=== PATIENT | female | born 1955 | race Caucasian/White ===

== ENCOUNTER 2025-03-12 15:47 | Inpatient (IN) | payer MEDICARE, BC ==
[~2025-03-12] VITALS: Ht 157.5 cm; Wt 90.7 kg
[2025-03-12 15:50] VITALS: BP 164/87
[2025-03-12] MEDS: IV NORMAL SALINE 500 ML BAG IV ONE (16:00)
[2025-03-12] MEDS ORDERED: FLUT1BLS12 IH (16:08)
[2025-03-12] MEDS ORDERED: ASPI81TA31 PO (16:08)
[2025-03-12] MEDS ORDERED: LEVO150T8 PO (16:08)
[2025-03-12] MEDS ORDERED: OMEG100037 PO (16:08)
[2025-03-12] MEDS ORDERED: CHOL200010 PO (16:08)
[2025-03-12] MEDS ORDERED: SPIR25TA6 PO (16:08)
[2025-03-12] MEDS ORDERED: OMEP40CA21 PO (16:08)
[2025-03-12] MEDS ORDERED: SEMA14TA PO (16:08)
[2025-03-12] MEDS ORDERED: METF-440 PO (16:08)
[2025-03-12] MEDS ORDERED: MINO2.5T PO (16:08)
[2025-03-12] MEDS ORDERED: ATOR20TA PO (16:08)
[2025-03-12] MEDS ORDERED: LOSA50TA39 PO (16:08)
[2025-03-12] MEDS ORDERED: CETI-90 PO (16:08)
[2025-03-12 16:20] VITALS: O2SAT 96
[2025-03-12] MEDS ORDERED: ALBUTEROL SULFATE 2.5 MG/3 ML NEBU ONE (16:20)
[2025-03-12] MEDS ORDERED: IPRATROPIUM BROMIDE 0.5 MG/2.5 ML NEBU ONE (16:20)
[2025-03-12 16:31] LABS: ASPARTATE AMINOTRANSFERASE 33.0 U/L (15-37); CREATININE 0.9 mg/dL (0.6-1.3); PLATELET COUNT (AUTO) 284 K/uL (179-408); RED BLOOD CELL COUNT(AUTO) 5.49 MIL/uL (3.63-4.92); RED CELL DISTRIBUTION WIDTH 17.1 % (12.3-17.7); SODIUM SERUM 136.0 mmol/L (136-145); TOTAL PROTEIN, SERUM 7.7 g/dL (6.4-8.2); UREA NITROGEN, BLOOD 14.0 mg/dL (7-18); WHITE BLOOD COUNT (AUTO) 15.8 K/uL (3.8-11.8)
[2025-03-12] MEDS: ALBUTEROL SULFATE 2.5 MG/3 ML NEBU NEB ONE (16:31)
[2025-03-12] MEDS: IPRATROPIUM BROMIDE 0.5 MG/2.5 ML NEBU NEB ONE (16:31)
[2025-03-12 16:35] VITALS: O2SAT 99
[2025-03-12] MEDS: CEFTRIAXONE 500 MG VIAL IV ONE (16:52)
[2025-03-12] MEDS ORDERED: CEFTRIAXONE /D5W 50ML IVPB **ER PYXIS IV ONE (16:52)
[2025-03-12] MEDS ORDERED: ONDANSETRON 4 MG/2 ML VIAL IV PRN (17:15)
[2025-03-12] MEDS ORDERED: REMEDY ESSENTIAL ZINC PASTE 113 GM TP PRN (17:15)
[2025-03-12] MEDS ORDERED: DEXTROSE 50% 50 ML DISP.SYRIN IV PRN (17:15)
[2025-03-12] MEDS ORDERED: MAGNESIUM HYDROXIDE 30 ML LIQUID UDC PO PRN (17:15)
[2025-03-12 19:00] VITALS: BP 126/73; TEMP 97.7; O2SAT 93
[2025-03-12] MEDS: IPRATROPIUM BROMIDE 0.5 MG/2.5 ML NEBU NEB SCH (19:30)
[2025-03-12] MEDS: ALBUTEROL SULFATE 2.5 MG/3 ML NEBU NEB SCH (19:30)
[2025-03-12] MEDS: MAGNESIUM SULFATE/D5W 100 ML IV SCH (20:25)
[2025-03-12] MEDS: ATORVASTATIN 20 MG TABLET PO SCH (21:00)
[2025-03-12] MEDS: MOMETASONE/FORMOTEROL 8.8 GM HFA.AER.AD IH SCH (21:00)
[2025-03-12] MEDS: DOXYCYCLINE HYCLATE IV 100 MG in IV DEXTROSE 5% 100 ML IV SCH (21:47)
[2025-03-12] MEDS: BLOOD SUGAR DIAGNOSTIC 1 EACH STRIP VI SCH (21:53)
[2025-03-12] MEDS: ENOXAPARIN SODIUM 40 MG/0.4 ML DISP.SYRIN SQ SCH (21:53)
[2025-03-12] MEDS: INSULIN REGULAR, HUMAN 300 UNITS/3 ML VIAL SQ PRN (22:00)
[2025-03-12] MEDS: ACETAMINOPHEN 325 MG TABLET PO PRN (23:21)
[2025-03-13] VITALS (12 sets, daily range): BP systolic 95–142; BP diastolic 44–71; TEMP 97.6–98.9; O2SAT 93–99
[2025-03-13] MEDS: LEVOTHYROXINE SODIUM 150 MCG TABLET PO SCH (06:17)
[2025-03-13 06:22] LABS: PLATELET COUNT (AUTO) 313 K/uL (179-408); RED BLOOD CELL COUNT(AUTO) 4.92 MIL/uL (3.63-4.92); RED CELL DISTRIBUTION WIDTH 17.7 % (12.3-17.7); WHITE BLOOD COUNT (AUTO) 16.0 K/uL (3.8-11.8)
[2025-03-13 06:45] LABS: CREATININE 0.8 mg/dL (0.6-1.3); SODIUM SERUM 140.0 mmol/L (136-145); UREA NITROGEN, BLOOD 15.0 mg/dL (7-18)
[2025-03-13] MEDS: PANTOPRAZOLE SODIUM 40 MG VIAL IV SCH (08:30)
[2025-03-13] MEDS: ASPIRIN 81 MG TAB.CHEW PO SCH (08:30)
[2025-03-13] MEDS: SPIRONOLACTONE 25 MG TABLET PO SCH (08:30)
[2025-03-13] MEDS: OMEGA-3 FATTY ACIDS/FISH OIL CAPSULE PO SCH (08:31)
[2025-03-13] MEDS: CHOLECALCIFEROL 1,000 UNIT TABLET PO SCH (08:31)
[2025-03-13] MEDS: MINOXIDIL 2.5 MG TABLET PO SCH (08:31)
[2025-03-13] MEDS: LOSARTAN POTASSIUM 50 MG TABLET PO SCH (08:31)
[2025-03-13] MEDS ORDERED: Medication Not On Formulary EA (Omega-3/Dha/Epa/Fish Oil (Fish Oil 1,000 mg Softgel) 2,0 PO SCH (09:00)
[2025-03-13] MEDS ORDERED: FLUTICASONE/SALMETEROL 250/50 INHALER IH SCH (09:00)
[2025-03-13] MEDS: INSULIN REGULAR, HUMAN 1000 UNIT/10 ML VIAL SQ PRN (12:30)
[2025-03-14] VITALS (8 sets, daily range): BP systolic 110–147; BP diastolic 59–88; TEMP 98; O2SAT 93–99
[2025-03-14 07:43] LABS: CREATININE 0.8 mg/dL (0.6-1.3); SODIUM SERUM 142.0 mmol/L (136-145); UREA NITROGEN, BLOOD 20.0 mg/dL (7-18)
[2025-03-14 07:55] LABS: PLATELET COUNT (AUTO) 301 K/uL (179-408); RED BLOOD CELL COUNT(AUTO) 4.60 MIL/uL (3.63-4.92); RED CELL DISTRIBUTION WIDTH 17.5 % (12.3-17.7); WHITE BLOOD COUNT (AUTO) 19.2 K/uL (3.8-11.8)
[2025-03-14 10:05] LABS: EOSINOPHILS % (MANUAL) 1 % (0-8); LYMPHOCYTES % (MANUAL) 10 % (20-40); MONOCYTES % (MANUAL) 6 % (2-10); NEUTROPHILS % (MANUAL) 83 % (42-75); PLATELET ESTIMATE ADEQUATE
[2025-03-14] MEDS ORDERED: PANT40TA2 PO (14:22)
[2025-03-14] MEDS ORDERED: DOXY-326 PO (14:22)
[2025-03-14] MEDS ORDERED: CHOL100062 PO (14:22)
[2025-03-14] MEDS ORDERED: MOME13HF2 IH (14:22)
[2025-03-14] MEDS ORDERED: PRED20TA PO (14:22)
[2025-03-14] MEDS ORDERED: IPRA0.2S6 NEB ×2 (14:22→15:41)
[2025-03-14] MEDS ORDERED: ALBU2.5V7 NEB (14:22)
[2025-03-14] MEDS ORDERED: ALBU2.5V38 NEB (15:41)
[2025-03-14] MEDS ORDERED: MOME13HF INH (15:41)
== END 2025-03-14 16:20 | disposition home or self-care (01) | DRG 202 ==
LOC: ER 15:47 → TELE3 17:52 → MEDSURG3 03-13 12:10
PROVIDERS: ADMIT Nurse Practitioner Acute Care; ATTEND Nurse Practitioner Acute Care
DX: J45.901 Unspecified asthma with (acute) exacerbation (principal); J96.01 Acute respiratory failure with hypoxia; H59.34 Postprocedural hematoma of eye and adnexa following other procedure; E66.9 Obesity, unspecified; D72.829 Elevated white blood cell count, unspecified; E11.9 Type 2 diabetes mellitus without complications; M06.9 Rheumatoid arthritis, unspecified; I10 Essential (primary) hypertension; E78.5 Hyperlipidemia, unspecified; Y83.8 Other surgical procedures as the cause of abnormal reaction of the patient, or of later complication, without mention of misadventure at the time of the procedure; Y92.530 Ambulatory surgery center as the place of occurrence of the external cause; Z68.36 Body mass index [BMI] 36.0-36.9, adult; Z79.84 Long term (current) use of oral hypoglycemic drugs; Z79.899 Other long term (current) drug therapy; Z79.82 Long term (current) use of aspirin; M32.9 Systemic lupus erythematosus, unspecified
CPT/HCPCS: 36415; 70030-TC; 71045; 83735; 84100; 85025; 94640; 94760; A4606; A4663; G0378; J0696; J1650; J1815; J2470; J2919; J3475; J3490; J3590; J7040